=== PATIENT | male | born 1965 | race Caucasian/White ===

== ENCOUNTER 2019-04-14 16:17 | Emergency (ER) | payer OTHER ==
[~2019-04-14] VITALS: Ht 167.6 cm; Wt 74.8 kg
[~2019-04-14 16:17] MED LIST: ACYCLOVIR 400400 MG PO; APIDRA; ATORVASTATIN CA40 MG PO; BISAC-EVAC10 MG RC; CEPACOL SORE T1 EAC7 MUCOUS MEM; COLACE 100 MG100 MG PO; COREG3.125 MG PO; COUMADIN 1MG TAB1 M1 PO; DULERA 100 MCG/13 GM IH; ENOXAPARIN80 MG/0.1 SUBQ; HEPSERA10 MG PO; HYCET 7.5 MG-3473 ML PO; HYDROCODON-ACE1 EAC7 PO; LANTUS; LISINOPRIL20 MG PO; LOPRESSOR 12.12.5 MG PO; LYRICA 75 MG CA75 MG PO; MONTELUKAST SOD10 MG PO; MUCINEX600 MG PO; NASONEX17 GM; NEURONTIN600 MG PO; NORCO 7.5-3251 EACH PO; PERCOCET 5-3251 EACH PO; PLAVIX 75 MG TA75 M1 PO; PLAVIX 75 MG TA75 MG PO; SENNA CONCENTR8.6 MG PO; ZANTAC 150MG T150 M1 PO
[2019-04-14 16:21] VITALS: BP 128/78
[2019-04-14] MEDS ORDERED: METFORMIN HCL500 M3 PO (16:29)
--- NOTE | 2019-04-16 11:06 | EKG ---
[place] [address] ELECTROCARDIOGRAM REPORT Name: KYA WOLF Room: [place]#: [id number] Admission: 04/14/19 Attend Phys: Discharge: 04/14/19 Date of : 67 Report #: [id number] THIS REPORT FOR: //name// [facility] ED Test Date: 2019-04-14 Test Time: 16:21:33 Pat Name: KYA WOLF Department: Room: Gender: M Rn Family: : 1965 Requested By: Mario Russell Order Number: [id number] MD: Deejay Roberto Measurements Intervals [place] Rate: 123 P: 49 WI: 155 QRS: -31 QRSD: 61 T: 120 QT: 261 QTc: 374 Interpretive Statements Sinus tachycardia Probable left atrial enlargement Left axis deviation Anterior infarct, old Nonspecific T abnormalities, lateral leads Baseline wander in lead(s) III,aVL Compared to ECG 08/28/2014 10:26:27 Left-axis deviation now present Myocardial infarct finding now present Electronically Signed On 04-16-2019 11:05:58 CDT by Deejay Roberto [email or web address] <ELECTRONICALLY SIGNED> By: Deejay Roberto MD, FACC 04/16/19 1105 1621 1621 Deejay Roberto MD, [facility] /EPI
== END 2019-04-14 16:36 | disposition left against medical advice (07) ==
LOC: M.ERS 16:17
DX: S20.211A Contusion of right front wall of thorax, initial encounter (principal); K21.9 Gastro-esophageal reflux disease without esophagitis; F17.220 Nicotine dependence, chewing tobacco, uncomplicated; Z90.49 Acquired absence of other specified parts of digestive tract; Z95.1 Presence of aortocoronary bypass graft; Z88.5 Allergy status to narcotic agent; Z88.6 Allergy status to analgesic agent; Z88.0 Allergy status to penicillin; Z88.8 Allergy status to other drugs, medicaments and biological substances; W55.22XA Struck by cow, initial encounter; Y93.89 Activity, other specified; Y92.89 Other specified places as the place of occurrence of the external cause; Y99.8 Other external cause status